=== PATIENT | female | born 1995 | race Caucasian/White ===

== ENCOUNTER 2021-04-20 11:11 | Emergency (ER) | payer OTHER ==
[2021-04-20] MEDS ORDERED: Sodium Chloride 0.9% 2.5 ML Syringe FLUSH PRN (11:36)
[2021-04-20] MEDS ORDERED: Sodium Chloride 0.9% 10 ML Syringe FLUSH PRN (11:36)
--- NOTE | 2021-04-20 11:41 | EDM.PDOC ---
ED HPI GENERAL MEDICAL PROBLEM - General Chief Complaint: Abdominal Pain Stated Complaint: PAIN IN LOWER RIGHT SIDE OF ADM Time Seen by Provider: 04/20/21 11:15 Source of Information: Reports: Patient History Limitations: Reports: No Limitations - History of Present Illness INITIAL COMMENTS - FREE TEXT/NARRATIVE: HISTORY AND PHYSICAL: History of present illness: Patient is a 25-year-old female who presents emergency room today with concern of left lower quadrant abdominal pain that has been getting worse each day x4 days. Patient states that initially when it started, she thought she had a pulled muscle in her left lower side but states that now it feels deeper in each day has gotten worse instead of getting better. Patient states the pain is worse with movement and if she presses on her abdomen and states it is better if she lays still or does not move. Patient denies any abdominal surgeries. Patient denies any health history. Patient states that she is sexually active with her but has been him in a monogamous relationship for several years and he has been her only partner. Patient states that she is on NuvaRing control so does not believe to be and last had a menstrual cycle on April 04 2021 (16 days ago). Patient denies any change in vaginal discharge, painful intercourse, or abnormal vaginal bleeding. Patient states she does have some associated nausea when the pain is increased which improves when she lays still. Patient denies fever, chills, chest pain, shortness of breath, or cough. Denies headache, neck stiff ness, change in vision, syncope, or near syncope. Denies vomiting, diarrhea, constipation, or dysuria. Has not noted any blood in urine or stool. Patient has been eating and drinking appropriately. Review of systems: As per history of present illness and below otherwise all systems reviewed and negative. Past medical history: As per history of present illness and as reviewed below otherwise noncontributory. Surgical history: As per history of present illness and as reviewed below otherwise noncontributory. Social history: See social history for further information Family history: As per history of present illness and as reviewed below otherwise noncontributory. Physical exam: General: Patient is alert, oriented, and in no acute distress. Patient laying comfortably on exam table. Vitals stable and reviewed by me. HEENT: Atraumatic, normocephalic, pupils equal and reactive bilaterally, negative for conjunctival pallor or scleral icterus, mucous membranes moist, TMs normal bilaterally, throat clear, neck supple, nontender, trachea midline. No drooling or trismus noted. No meningeal signs. No hot potato voice noted. Lungs: Clear to auscultation, breath sounds equal bilaterally, chest nontender. Heart: S1S2, regular rate and rhythm without overt murmur Abdomen: Soft, nondistended, moderate LLQ tenderness with guarding, negative rebound/sibley. Negative for masses or hepatosplenomegaly. Negative for costovertebral tenderness. Pelvis: Stable nontender. Genitourinary: Anatomic Pathology Manager at bedside Michelle Fall RN. There is an area of folliculitis/early cellulitis of the right inner thigh without fluctuance / abscess at this time. External genitalia grossly unremarkable. NuvaRing in place. There is a small amount of white vaginal discharge in the vaginal vault. Negative cervical motion tenderness with negative chandelier sign. Patient does have some left-sided adnexal tenderness without obvious mass. Rectal: Deferred. Skin: Intact, warm, dry. No lesions or rashes noted. Extremities: Atraumatic, negative for cords or calf pain. Neurovascular unremarkable. Neuro: Awake, alert, oriented. Cranial nerves II through XII unremarkable. Cerebellum unremarkable. Motor and sensory unremarkable throughout. Exam nonfocal. Notes: Patient is a 25-year-old female who presents emergency room today secondary to left lower quadrant abdominal pain x4 days. Upon arrival to the ED, patient is v itally stable and well-appearing on exam but is noted to have moderate left lower quadrant tenderness with guarding. Patient does have an area of folliculitis/early cellulitis of her right inner thigh with some left-sided adnexal tenderness on exam. Will obtain basic lab work with a scan of abdomen and pelvis. I did offer patient Toradol, Zofran, and morphine, however patient declines at this time. CBC shows mild leukocytosis at 12.81 with mild thrombocytosis at 448. Otherwise, mild derangements of CBC unremarkable. CMP mild derangements unremarkable. Hcg negative. Urinalysis shows 0-2 red blood cells with 0-1 white blood cells and few bacteria. Urinalysis clear of infection. Lipase within normal limits. Abdominal pelvic CT shows epiploic appendagitis at the distal descending colon. NuvaRing in place. Appendix is normal. Upon reevaluation of patient, she remains vitally stable and comfortable throughout stay in ED. Patient does have an area of folliculitis on her right inner thigh with possible early cellulitis. Will place patient on Keflex for possible early cellulitis of this area. Strict return precautions thoroughly discussed with patient. Discussed importance for follow-up with a primary care provider. Voices understanding and is agreeable to plan of care. Denies any further questions or concerns at this time. Diagnostics: CBC, CMP, UA, Serum hcg qual, Lipase, Abd/Pelvic CT w cont Therapeutics: Saline lock (I did offer Toradol, Zofran, and morphine, however patient declines) Prescription: Keflex Impression: Epiploic appendagitis Folliculitis, possible early cellulitis, right inner thigh Plan: 1. You can alternate ibuprofen and Tylenol as directed for pain and discomfort. 2. Follow-up with a primary care provider as discussed. Return to the ED as needed and as discussed. 3. Take medication as prescribed. Definitive disposition and diagnosis as appropriate pending reevaluation and review of above. - Related Data Allergies Allergy/AdvReac Type Severity Reaction Status Date / Time No Known Allergies Allergy Verified 04/20/21 11:28 Home Meds: Home Meds Ethinyl Estradiol/Etonogestrel [Nuvaring Vaginal Ring] 1 unit VAG ONETIME 04/20/21 [History] FLUoxetine [PROzac] 10 mg PO DAILY 04/20/21 [History] buPROPion [Wellbutrin] 300 mg PO DAILY 04/20/21 [History] cephALEXin [Keflex] 500 mg PO BID 7 Days #14 cap 04/20/21 [Rx] valACYclovir [Valtrex] 1,000 mg PO BID 04/20/21 [History] Past Medical History HEENT History: Reports: None Cardiovascular History: Reports: None Respiratory History: Reports: None Gastrointestinal History: Reports: None Genitourinary History: Reports: None ENVIRONMENTAL COMPLIANCE MANAGER History: Reports: None Musculoskeletal History: Reports: None Neurological History: Reports: None Psychiatric History: Reports: Anxiety, Depression Endocrine/Metabolic History: Reports: None Hematologic History: Reports: None Immunologic History: Reports: None Oncologic (Cancer) History: Reports: None Dermatologic History: Reports: None - Infectious Disease History Infectious Disease History: Reports: None - Past Surgical History Head Surgeries/Procedures: Reports: None HEENT Surgical History: Reports: None Cardiovascular Surgical History: Reports: None Respiratory Surgical History: Reports: None GI Surgical History: Reports: None Female Surgical History: Reports: None Endocrine Surgical History: Reports: None Neurological Surgical History: Reports: None Musculoskeletal Surgical History: Reports: Other (See Below) Other Musculoskeletal Surgeries/Procedures:: Left foot surgery Oncologic Surgical History: Reports: None Dermatological Surgical History: Reports: None Social & Family History - Family History Family Medical History: No Pertinent Family History - Tobacco Use Tobacco Use Status *Q: Never Tobacco User Second Hand Smoke Exposure: No - Caffeine Use Caffeine Use: Reports: None - Recreational Drug Use Recreational Drug Use: No ED ROS GENERAL - Review of Systems Review Of Systems: Comprehensive ROS is negative, except as noted in HPI. ED EXAM, GENERAL - Physical Exam Exam: See Below (see dictation) Course - Vital Signs Last Recorded V/S: Last Vital Signs Temp 98.9 F 04/20/21 12:25 Pulse 84 04/20/21 12:25 Resp 15 04/20/21 12:25 BP 137/82 04/20/21 12:25 Pulse Ox 96 04/20/21 12:25 - Orders/Labs/Meds Orders: Active Orders 24 hr Category Date Time Status Sodium Chloride 0.9% [Saline Flush] Med 04/20/21 11:36 Active 10 ml FLUSH ASDIRECTED PRN Sodium Chloride 0.9% [Saline Flush] Med 04/20/21 11:36 Active 2.5 ml FLUSH ASDIRECTED PRN Saline Lock Insert [OM.PC] Stat Oth 04/20/21 11:36 Ordered Medication Orders Sodium Chloride (Sodium Chloride 0.9% 10 Ml Syringe) 10 ml FLUSH ASDIRECTED PRN PRN Reason: Keep Vein Open Last Admin: 04/20/21 12:24 Dose: 10 ml Documented by: VELVET Sodium Chloride (Sodium Chloride 0.9% 2.5 Ml Syringe) 2.5 ml FLUSH ASDIRECTED PRN PRN Reason: Keep Vein Open Last Admin: 04/20/21 12:24 Dose: 2.5 ml Documented by: VELVET Labs: Laboratory Tests 04/20/21 04/20/21 04/20/21 Range/Units 11:44 11:44 11:44 WBC 12.81 H (4.0-11.0) K/uL RBC 5.10 (4.30-5.90) M/uL Hgb 14.2 (12.0-16.0) g/dL Hct 42.0 (36.0-46.0) % MCV 82.4 (80.0-98.0) fL MCH 27.8 (27.0-32.0) pg MCHC 33.8 (31.0-37.0) g/dL RDW Std Deviation 42.0 (28.0-62.0) fl RDW Coeff of Sima 14 (11.0-15.0) % Plt Count 448 H (150-400) K/uL MPV 9.60 (7.40-12.00) fL Neut % (Auto) 70.7 (48.0-80.0) % Lymph % (Auto) 21.5 (16.0-40.0) % [place] % (Auto) 6.4 (0.0-15.0) % Eos % (Auto) 1.2 (0.0-7.0) % Baso % (Auto) 0.2 (0.0-1.5) % Neut # (Auto) 9.1 H (1.4-5.7) K/uL Lymph # (Auto) 2.8 H (0.6-2.4) K/uL [place] # (Auto) 0.8 (0.0-0.8) K/uL Eos # (Auto) 0.2 (0.0-0.7) K/uL Baso # (Auto) 0.0 (0.0-0.1) K/uL Nucleated RBC % 0.0 /100WBC Nucleated RBCs # 0 K/uL Sodium 138 (136-145) mmol/L Potassium 3.9 (3.5-5.1) mmol/L Chloride 104 (98-107) mmol/L Carbon Dioxide 21.2 (21.0-32.0) mmol/L BUN 9 (7.0-18.0) mg/dL Creatinine 0.8 (0.6-1.0) mg/dL Est Cr Clr Drug Dosing 98.88 mL/min Estimated GFR (MDRD) > 60.0 ml/min Glucose 82 (74-106) mg/dL Calcium 8.6 (8.5-10.1) mg/dL Total Bilirubin 0.3 (0.2-1.0) mg/dL AST 13 L (15-37) IU/L ALT 31 (14-63) IU/L Alkaline Phosphatase 142 H (46-116) U/L Total Protein 8.0 (6.4-8.2) g/dL Albumin 3.4 (3.4-5.0) g/dL Globulin 4.6 H (2.6-4.0) g/dL Albumin/Globulin Ratio 0.7 L (0.9-1.6) Lipase 96 (73-393) U/L HCG, Qual NEGATIVE (NEG) Urine Color Urine Appearance Urine pH (5.0-8.0) Ur Specific [place] (1.001-1.035) Urine Protein (NEGATIVE) mg/dL Urine Glucose (UA) (NEGATIVE) mg/dL Urine Ketones (NEGATIVE) mg/dL Urine Occult Blood (NEGATIVE) Urine Nitrite (NEGATIVE) Urine Bilirubin (NEGATIVE) Urine Urobilinogen (<2.0) EU/dL Ur Leukocyte Esterase (NEGATIVE) Urine RBC (0-2/HPF) Urine WBC (0-5/HPF) Ur Epithelial Cells (NONE-FEW) Urine Bacteria (NEGATIVE) 04/20/21 Range/Units 12:30 WBC (4.0-11.0) K/uL RBC (4.30-5.90) M/uL Hgb (12.0-16.0) g/dL Hct (36.0-46.0) % MCV (80.0-98.0) fL MCH (27.0-32.0) pg MCHC (31.0-37.0) g/dL RDW Std Deviation (28.0-62.0) fl RDW Coeff of Sima (11.0-15.0) % Plt Count (150-400) K/uL MPV (7.40-12.00) fL Neut % (Auto) (48.0-80.0) % Lymph % (Auto) (16.0-40.0) % [place] % (Auto) (0.0-15.0) % Eos % (Auto) (0.0-7.0) % Baso % (Auto) (0.0-1.5) % Neut # (Auto) (1.4-5.7) K/uL Lymph # (Auto) (0.6-2.4) K/uL [place] # (Auto) (0.0-0.8) K/uL Eos # (Auto) (0.0-0.7) K/uL Baso # (Auto) (0.0-0.1) K/uL Nucleated RBC % /100WBC Nucleated RBCs # K/uL Sodium (136-145) mmol/L Potassium (3.5-5.1) mmol/L Chloride (98-107) mmol/L Carbon Dioxide (21.0-32.0) mmol/L BUN (7.0-18.0) mg/dL Creatinine (0.6-1.0) mg/dL Est Cr Clr Drug Dosing mL/min Estimated GFR (MDRD) ml/min Glucose (74-106) mg/dL Calcium (8.5-10.1) mg/dL Total Bilirubin (0.2-1.0) mg/dL AST (15-37) IU/L ALT (14-63) IU/L Alkaline Phosphatase (46-116) U/L Total Protein (6.4-8.2) g/dL Albumin (3.4-5.0) g/dL Globulin (2.6-4.0) g/dL Albumin/Globulin Ratio (0.9-1.6) Lipase (73-393) U/L HCG, Qual (NEG) Urine Color YELLOW Urine Appearance CLEAR Urine pH 5.0 (5.0-8.0) Ur Specific [place] >= 1.030 (1.001-1.035) Urine Protein NEGATIVE (NEGATIVE) mg/dL Urine Glucose (UA) NEGATIVE (NEGATIVE) mg/dL Urine Ketones NEGATIVE (NEGATIVE) mg/dL Urine Occult Blood SMALL H (NEGATIVE) Urine Nitrite NEGATIVE (NEGATIVE) Urine Bilirubin NEGATIVE (NEGATIVE) Urine Urobilinogen 0.2 (<2.0) EU/dL Ur Leukocyte Esterase NEGATIVE (NEGATIVE) Urine RBC 0-2 (0-2/HPF) Urine WBC 0-1 (0-5/HPF) Ur Epithelial Cells FEW (NONE-FEW) Urine Bacteria FEW (NEGATIVE) Meds: Medications Generic Name Dose Route Start Last Admin Trade Name Freq PRN Reason Stop Dose Admin Sodium Chloride 10 ml 04/20/21 11:36 04/20/21 12:24 Sodium Chloride 0.9% 10 Ml Syringe FLUSH 10 ml ASDIRECTED PRN Administration Keep Vein Open Sodium Chloride 2.5 ml 04/20/21 11:36 04/20/21 12:24 Sodium Chloride 0.9% 2.5 Ml Syringe FLUSH 2.5 ml ASDIRECTED PRN Administration Keep Vein Open Departure - Departure Time of Disposition: 13:39 Disposition: Home, Self-Care 01 Clinical Impression: Epiploic appendagitis, Folliculitis - Discharge Information Prescriptions: cephALEXin [Keflex] 500 mg PO BID 7 Days #14 cap Referrals: PCP,None [Primary Care Provider] - Forms: ED Department Discharge Additional Instructions: The following information is given to patients seen in the emergency department who are being discharged to home. This information is to outline your options for follow-up care. We provide all patients seen in our emergency department with a follow-up referral. The need for follow-up, as well as the timing and circumstances, are variable depending upon the specifics of your emergency department visit. If you don't have a primary care physician on staff, we will provide you with a referral. We always advise you to contact your personal physician following an emergency department visit to inform them of the circumstance of the visit and for follow-up with them and/or the need for any referrals to a consulting specialist. The emergency department will also refer you to a specialist when appropriate. This referral assures that you have the opportunity for follow-up care with a specialist. All of these measure are taken in an effort to provide you with optimal care, which includes your follow-up. Under all circumstances we always encourage you to contact your private physician who remains a resource for coordinating your care. When calling for follow-up care, please make the office aware that this follow-up is from your recent emergency room visit. If for any reason you are refused follow-up, please contact the [facility] Emergency Department at and asked to speak to the emergency department charge nurse. [facility] Primary Care [address] [place] [id number] [address] 1. You can alternate ibuprofen and Tylenol as directed for pain and discomfort. 2. Follow-up with a primary care provider as discussed. Return to the ED as needed and as discussed. 3. Take medication as prescribed. Sepsis Event Note (ED) - Evaluation Sepsis Screening Result: No Definite Risk - Focused Exam Vital Signs: Vital Signs Temp Pulse Resp BP Pulse Ox 04/20/21 12:25 98.9 F 84 15 137/82 96 04/20/21 11:26 96.4 F L 97 17 145/102 H 97 - My Orders Last 24 Hours: My Active Orders 04/20/21 11:36 Sodium Chloride 0.9% [Saline Flush] 10 ml FLUSH ASDIRECTED PRN Sodium Chloride 0.9% [Saline Flush] 2.5 ml FLUSH ASDIRECTED PRN Saline Lock Insert [OM.PC] Stat - Assessment/Plan Last 24 Hours: My Active Orders 04/20/21 11:36 Sodium Chloride 0.9% [Saline Flush] 10 ml FLUSH ASDIRECTED PRN Sodium Chloride 0.9% [Saline Flush] 2.5 ml FLUSH ASDIRECTED PRN Saline Lock Insert [OM.PC] Stat
[2021-04-20 12:16] LABS: BLOOD UREA NITROGEN,BUN 9 mg/dL (7.0-18.0); CARBON DIOXIDE,CO2 21.2 mmol/L (21.0-32.0); CHLORIDE,CL 104 mmol/L (98-107); GLUCOSE RANDOM 82 mg/dL (74-106); LIPASE 96 U/L (73-393); POTASSIUM,K 3.9 mmol/L (3.5-5.1); SODIUM,NA 138 mmol/L (136-145)
--- NOTE | 2021-04-20 13:31 | CT ---
INDICATION: Left lower quadrant pain for 4 days TECHNIQUE: CT abdomen and pelvis acquired with 100 cc Isovue 370 IV contrast. COMPARISON: None FINDINGS: Lower chest: Unremarkable. Liver: Unremarkable. Spleen: Unremarkable. Pancreas: Unremarkable. Gallbladder and bile ducts: Unremarkable. Adrenal glands: Unremarkable. Kidneys: Unremarkable. GI tract: Adjacent to the distal descending colon, there is a rim enhanced seen fat collection measuring 1.5 x 2.6 cm. There is no adjacent colonic wall thickening, free air, or free fluid. Appendix is normal. Vascular structures: Unremarkable. Lymph nodes: Unremarkable. Miscellaneous: Unremarkable. No free air or significant free fluid. Pelvic Organs: There is a NuvaRing in place. Bones: Unremarkable for age. IMPRESSION: Epiploic appendagitis of the distal descending colon. New ring in place. Please note that all CT scans at this facility use dose modulation, iterative reconstruction, and/or weight-based dosing when appropriate to reduce radiation dose to as low as reasonably achievable. Dictated by Lynette Henao MD @ 04/20/2021 1:30:[address] Lynette Henao @ Apr 20 2021 1:30PM
[2021-04-20] MEDS ORDERED: Iopamidol 755 MG/ML 500 ML Multipack Bottle IVPUSH STA (17:02)
== END 2021-04-20 13:51 | disposition home or self-care (01) ==
LOC: MW.ED 11:11
DX: K63.89 Other specified diseases of intestine (principal); L73.9 Follicular disorder, unspecified
CPT/HCPCS: 36415; 74177; 80053; 81001; 83690; 84703; 85025; 99284; Q9967

== ENCOUNTER 2023-06-29 17:02 | Inpatient (IN) | payer BC ==
[2023-06-29] MEDS ORDERED: Misoprostol 200 MCG Tab PO PRN (18:12)
[2023-06-29] MEDS ORDERED: Tranexamic Acid IN NACL,ISO-OS 1,000 MG in Premix Bag 1 BAG IV PRN ×2 (18:12)
[2023-06-29] MEDS ORDERED: Methylergonovine 0.2 MG/1 ML Amp IM PRN (18:12)
[2023-06-29] MEDS ORDERED: Lidocaine 1% 50 ML MDV INJECT PRN (18:12)
[2023-06-29] MEDS ORDERED: Water For Irrigation,Sterile 1,000 ML Container IRR PRN (18:12)
[2023-06-29] MEDS ORDERED: Sodium Chloride 0.9% 20 ML SDV IV PRN ×2 (18:12→21:09)
[2023-06-29] MEDS ORDERED: Carboprost Tromethamine 250 MCG/1 mL Vial IM PRN (18:12)
[2023-06-29] MEDS ORDERED: Sodium Chloride 0.9% 10 ML Syringe FLUSH PRN ×2 (18:12→21:09)
[2023-06-29] MEDS ORDERED: Ondansetron 4 MG Tab.DIS PO PRN (18:12)
[2023-06-29] MEDS ORDERED: Sodium Chloride 0.9% 2.5 ML Syringe FLUSH PRN ×2 (18:12→21:09)
[2023-06-29] MEDS ORDERED: Oxytocin/0.9 % Sodium Chloride 30 UNIT/500 ML BAG IV SCH ×2 (18:15→18:30)
[2023-06-29] MEDS ORDERED: Terbutaline 1 MG/ML SDV SUBCUT PRN (18:19)
[2023-06-29 18:23] LABS: CREATININE,URINE RAND 32.8 mg/dL; PROTEIN,URINE RANDOM < 6.0 mg/dL (<11.9)
[2023-06-29] MEDS ORDERED: Phenylephrine HCl 0.5 MG/5 ML AMP IVPUSH PRN (18:34)
[2023-06-29] MEDS ORDERED: ePHEDrine 50 MG/ML SDV IVPUSH PRN ×2 (18:34)
[2023-06-29 18:43] LABS: HEMATOCRIT 39.4 % (37.0-47.0); HEMOGLOBIN 13.3 g/dL (12.0-16.0); MEAN CORPUSCULAR HEMOGLOBIN 28.5 pg (28.0-32.0); MEAN CORPUSCULAR HGB CONC 33.8 g/dL (32.0-36.0); MEAN CORPUSCULAR VOLUME 84.4 fL (83.0-99.0); MEAN PLATELET VOLUME 13.6 fL (9.4-12.3); PLATELET COUNT,PLT 152 K/uL (150-400); RED BLOOD CELL COUNT 4.67 M/uL (4.10-5.30); WHITE BLOOD CELL COUNT,WBC 10.36 K/uL (3.9-11.3)
[2023-06-29] MEDS ORDERED: Ropivacaine HCl/PF 400 MG in Premix Bag 1 BAG EPIDUR SCH (18:45)
[2023-06-29 19:14] LABS: A/G RATIO 0.6 (0.9-1.6); ALBUMIN 2.2 g/dL (3.4-5.0); BILIRUBIN TOTAL 0.4 mg/dL (0.2-1.0); CALCIUM 8.7 mg/dL (8.5-10.1); CARBON DIOXIDE,CO2 18.3 mmol/L (21.0-32.0); CREATININE 0.9 mg/dL (0.6-1.0); EST CRCL DRUG DOSING (CG) 85.56 mL/min; POTASSIUM,K 3.9 mmol/L (3.5-5.1)
[2023-06-29] MEDS ORDERED: Labetalol 100 MG/20 ML MDV IVPUSH PRN (21:09)
[2023-06-29] MEDS ORDERED: Magnesium Sulfate/Water 6 GM in Premix Bag 1 BAG IV ONE (21:09)
[2023-06-29] MEDS ORDERED: Calcium Gluconate 10% 1 GM/10 ML SDV IV PRN (21:09)
[2023-06-29] MEDS ORDERED: Magnesium Sulfate/Water 100 ML ONE (21:13)
[2023-06-29] MEDS: Lactated Ringers 1,000 ML IV SCH (21:31)
[2023-06-29] MEDS: MAGNESIUM SULFATE ONE ×2 (21:32→22:21)
[2023-06-29] MEDS: WATER ONE ×2 (21:32→22:21)
[2023-06-29] MEDS: Magnesium Sulfate/Water 20 GM/500 ML BAG IV SCH (22:07)
[2023-06-29] MEDS: Misoprostol 25 MCG (1/4 of 100 MCG) Tab VAG PRN (22:39)
[2023-06-30 02:18] LABS: HEMATOCRIT 41.6 % (37.0-47.0); HEMOGLOBIN 13.8 g/dL (12.0-16.0); MEAN CORPUSCULAR HEMOGLOBIN 28.3 pg (28.0-32.0); MEAN CORPUSCULAR HGB CONC 33.2 g/dL (32.0-36.0); MEAN CORPUSCULAR VOLUME 85.4 fL (83.0-99.0); MEAN PLATELET VOLUME 13.3 fL (9.4-12.3); PLATELET COUNT,PLT 150 K/uL (150-400); RED BLOOD CELL COUNT 4.87 M/uL (4.10-5.30); WHITE BLOOD CELL COUNT,WBC 11.78 K/uL (3.9-11.3)
[2023-06-30 02:43] LABS: A/G RATIO 0.5 (0.9-1.6); ALBUMIN 2.3 g/dL (3.4-5.0); BILIRUBIN TOTAL 0.4 mg/dL (0.2-1.0); CALCIUM 9.1 mg/dL (8.5-10.1); CARBON DIOXIDE,CO2 19.9 mmol/L (21.0-32.0); CREATININE 0.9 mg/dL (0.6-1.0); EST CRCL DRUG DOSING (CG) 85.56 mL/min; MAGNESIUM 5.6 mg/dL (1.8-2.4); POTASSIUM,K 3.9 mmol/L (3.5-5.1); PROTEIN TOTAL,TP 6.7 g/dL (6.4-8.2); URIC ACID 7.8 mg/dL (2.6-7.2)
[2023-06-30] MEDS ORDERED: Dexmedetomidine 200 MCG/2 ML SDV ONE (02:43)
[2023-06-30] MEDS: Misoprostol 25 MCG (1/4 of 100 MCG) Tab VAG PRN ×2 (03:22→07:38)
[2023-06-30] MEDS: Lactated Ringers 1,000 ML IV SCH (07:12)
[2023-06-30] MEDS: Magnesium Sulfate/Water 20 GM/500 ML BAG IV SCH (07:14)
[2023-06-30 08:10] LABS: HEMATOCRIT 41.7 % (37.0-47.0); HEMOGLOBIN 13.9 g/dL (12.0-16.0); MEAN CORPUSCULAR HEMOGLOBIN 28.4 pg (28.0-32.0); MEAN CORPUSCULAR HGB CONC 33.3 g/dL (32.0-36.0); MEAN CORPUSCULAR VOLUME 85.3 fL (83.0-99.0); MEAN PLATELET VOLUME 12.6 fL (9.4-12.3); PLATELET COUNT,PLT 151 K/uL (150-400); RED BLOOD CELL COUNT 4.89 M/uL (4.10-5.30); WHITE BLOOD CELL COUNT,WBC 11.76 K/uL (3.9-11.3)
[2023-06-30] MEDS ORDERED: Ondansetron 4 MG/2 ML SDV IVPUSH PRN (08:15)
[2023-06-30 08:51] LABS: A/G RATIO 0.5 (0.9-1.6); ALBUMIN 2.3 g/dL (3.4-5.0); BILIRUBIN TOTAL 0.6 mg/dL (0.2-1.0); CARBON DIOXIDE,CO2 17.6 mmol/L (21.0-32.0); CREATININE 1.1 mg/dL (0.6-1.0); EST CRCL DRUG DOSING (CG) 70.01 mL/min; MAGNESIUM 14.6 mg/dL (1.8-2.4); POTASSIUM,K 3.9 mmol/L (3.5-5.1); PROTEIN TOTAL,TP 6.9 g/dL (6.4-8.2); URIC ACID 8.1 mg/dL (2.6-7.2)
[2023-06-30] MEDS ORDERED: Lidocaine 2% with EPINEPHrine 1:200,000 20 ML SDV ONE (14:58)
[2023-06-30] MEDS ORDERED: Lidocaine 2% 5 ML SDV ONE (14:58)
[2023-06-30] MEDS ORDERED: Misoprostol 200 MCG Tab ONE ×2 (16:33→16:50)
[2023-06-30] MEDS ORDERED: ceFAZolin 2 GM in Sodium Chloride 0.9% 50 ML IV ONE (17:22)
[2023-06-30] MEDS ORDERED: ceFAZolin 2 GM Vial ONE (17:26)
[2023-06-30] MEDS ORDERED: Magnesium Sulfate/Water 20 GM/500 ML BAG IV SCH (17:50)
[2023-06-30] MEDS ORDERED: Bisacodyl 10 MG Supp RECTAL PRN (19:04)
[2023-06-30] MEDS ORDERED: Lanolin 100% Cream 7 GM Tube TOP PRN (19:04)
[2023-06-30] MEDS ORDERED: Witch Hazel Medicated Pads 40/Jar TOP PRN (19:04)
[2023-06-30] MEDS ORDERED: Ibuprofen 400 MG Tab PO PRN (19:04)
[2023-06-30] MEDS ORDERED: Benzocaine/Menthol 20%-0.5% Spray 78 GM Cannister TOP PRN (19:04)
[2023-06-30] MEDS ORDERED: Acetaminophen 500 MG Tab PO PRN (19:04)
[2023-06-30 20:56] LABS: HEMATOCRIT 39.7 % (37.0-47.0); HEMOGLOBIN 13.3 g/dL (12.0-16.0); MEAN CORPUSCULAR HEMOGLOBIN 28.5 pg (28.0-32.0); MEAN CORPUSCULAR HGB CONC 33.5 g/dL (32.0-36.0); MEAN PLATELET VOLUME 13.5 fL (9.4-12.3); PLATELET COUNT,PLT 152 K/uL (150-400); RED BLOOD CELL COUNT 4.67 M/uL (4.10-5.30); WHITE BLOOD CELL COUNT,WBC 16.66 K/uL (3.9-11.3)
[2023-06-30 21:09] LABS: CALCIUM 8.1 mg/dL (8.5-10.1); CARBON DIOXIDE,CO2 20.8 mmol/L (21.0-32.0); CREATININE 1.3 mg/dL (0.6-1.0); EST CRCL DRUG DOSING (CG) 59.24 mL/min; MAGNESIUM 4.4 mg/dL (1.8-2.4); POTASSIUM,K 3.9 mmol/L (3.5-5.1)
[2023-06-30] MEDS: Docusate Sodium 100 MG Cap PO PRN (23:51)
[2023-06-30] MEDS: Acetaminophen 500 MG Tab PO PRN (23:52)
[2023-07-01] MEDS: Ibuprofen 800 MG Tab PO PRN ×2 (04:58→20:32)
[2023-07-01 06:49] LABS: HEMATOCRIT 37.8 % (37.0-47.0); HEMOGLOBIN 12.8 g/dL (12.0-16.0); MEAN CORPUSCULAR HEMOGLOBIN 29.1 pg (28.0-32.0); MEAN CORPUSCULAR HGB CONC 33.9 g/dL (32.0-36.0); MEAN CORPUSCULAR VOLUME 85.9 fL (83.0-99.0); MEAN PLATELET VOLUME 12.9 fL (9.4-12.3); PLATELET COUNT,PLT 118 K/uL (150-400); WHITE BLOOD CELL COUNT,WBC 14.27 K/uL (3.9-11.3)
[2023-07-01 08:21] LABS: A/G RATIO 0.4 (0.9-1.6); BILIRUBIN TOTAL 0.4 mg/dL (0.2-1.0); CALCIUM 7.6 mg/dL (8.5-10.1); CARBON DIOXIDE,CO2 19.2 mmol/L (21.0-32.0); CREATININE 1.3 mg/dL (0.6-1.0); EST CRCL DRUG DOSING (CG) 59.24 mL/min; POTASSIUM,K 4.1 mmol/L (3.5-5.1); PROTEIN TOTAL,TP 6.6 g/dL (6.4-8.2)
[2023-07-01] MEDS: Acetaminophen 500 MG Tab PO PRN (08:58)
[2023-07-01] MEDS ORDERED: Non-Formulary Medication 1 Each (Bupropion 100 MG Tablet) PO SCH (09:00)
[2023-07-01] MEDS: NIFEdipine 30 MG Tab.ER PO SCH (10:17)
[2023-07-01] MEDS: Docusate Sodium 100 MG Cap PO PRN (20:33)
[2023-07-02] MEDS: Acetaminophen 500 MG Tab PO PRN (06:03)
[2023-07-02 06:50] LABS: BASOPHILS ABSOLUTE AUTO 0.03 K/uL (0.00-0.20); BASOPHILS PERCENT AUTO 0.3 % (0.0-1.0); EOSINOPHILS ABSOLUTE AUTO 0.17 K/uL (0.00-0.45); EOSINOPHILS PERCENT AUTO 1.6 % (0.0-6.0); HEMATOCRIT 41.7 % (37.0-47.0); LYMPHOCYTES ABSOLUTE AUTO 2.98 K/uL (1.00-4.80); LYMPHOCYTES PERCENT AUTO 27.5 % (24.0-44.0); MEAN CORPUSCULAR HEMOGLOBIN 28.9 pg (28.0-32.0); MEAN CORPUSCULAR HGB CONC 33.6 g/dL (32.0-36.0); MEAN CORPUSCULAR VOLUME 86.2 fL (83.0-99.0); MEAN PLATELET VOLUME 12.5 fL (9.4-12.3); MONOCYTES ABSOLUTE AUTO 0.67 K/uL (0.00-0.80); MONOCYTES PERCENT AUTO 6.2 % (0.0-8.0); NEUTROPHILS ABSOLUTE AUTO 6.9 K/uL (1.8-7.7); PLATELET COUNT,PLT 138 K/uL (150-400); RED BLOOD CELL COUNT 4.84 M/uL (4.10-5.30); WHITE BLOOD CELL COUNT,WBC 10.82 K/uL (3.9-11.3)
[2023-07-02 07:27] LABS: A/G RATIO 0.5 (0.9-1.6); ALBUMIN 2.1 g/dL (3.4-5.0); BILIRUBIN TOTAL 0.3 mg/dL (0.2-1.0); CALCIUM 9.1 mg/dL (8.5-10.1); CARBON DIOXIDE,CO2 20.6 mmol/L (21.0-32.0); EST CRCL DRUG DOSING (CG) 77.01 mL/min; POTASSIUM,K 3.9 mmol/L (3.5-5.1); PROTEIN TOTAL,TP 6.7 g/dL (6.4-8.2)
[2023-07-02] MEDS: NIFEdipine 30 MG Tab.ER PO SCH (08:21)
[2023-07-03] MEDS: NIFEdipine 30 MG Tab.ER PO SCH (08:35)
== END 2023-07-03 17:03 | disposition home or self-care (01) | DRG 560 ==
LOC: MW.OB 17:02 → OBSVTOIN 17:02 → MW.OB 06-30 21:43
PROVIDERS: ADMIT Obstetrics & Gynecology; ATTEND Obstetrics & Gynecology
PROC: 10E0XZZ Delivery of Products of Conception, External Approach (ICD-10-PCS; principal; 2023-06-30)
PROC: 3E0P7VZ Introduction of Hormone into Female Reproductive, Via Natural or Artificial Opening (ICD-10-PCS; 2023-06-30)
PROC: 3E0DXGC Introduction of Other Therapeutic Substance into Mouth and Pharynx, External Approach (ICD-10-PCS; 2023-06-30)
PROC: 3E0R3BZ Introduction of Anesthetic Agent into Spinal Canal, Percutaneous Approach (ICD-10-PCS; 2023-06-30)
PROC: 00HU33Z Insertion of Infusion Device into Spinal Canal, Percutaneous Approach (ICD-10-PCS; 2023-06-30)
PROC: 0UQMXZZ Repair Vulva, External Approach (ICD-10-PCS; 2023-06-30)
PROC: 10907ZC Drainage of Amniotic Fluid, Therapeutic from Products of Conception, Via Natural or Artificial Opening (ICD-10-PCS; 2023-06-30)
DX: O14.14 Severe pre-eclampsia complicating childbirth (principal); Z37.2 Twins, both liveborn; O60.14X0 Preterm labor third trimester with preterm delivery third trimester, not applicable or unspecified; O30.043 Twin pregnancy, dichorionic/diamniotic, third trimester; O99.12 Other diseases of the blood and blood-forming organs and certain disorders involving the immune mechanism complicating childbirth; D69.6 Thrombocytopenia, unspecified; O71.82 Other specified trauma to perineum and vulva; O69.81X2 Labor and delivery complicated by cord around neck, without compression, fetus 2; Z98.890 Other specified postprocedural states; Z3A.36 36 weeks gestation of pregnancy
CPT/HCPCS: 36415; 51702; 59025; 59409; 80048; 80053; 82570; 83735; 84156; 84550; 85025; 85027; 86592; 86850; 86900; 86901; A9270-GY; J0690; J2405; J2590; J3475; J3490; J7120